=== PATIENT | female | born 1950 | race Caucasian/White ===

== ENCOUNTER 2018-01-15 10:03 | Emergency (ER) | END 2018-01-15 15:48 | disposition home or self-care (01) ==

== ENCOUNTER 2018-01-21 12:09 | Emergency (ER) | END 2018-01-21 15:49 | disposition home or self-care (01) ==

== ENCOUNTER 2018-04-07 10:16 | Day surgery (SDC) | END 2018-04-07 16:45 | disposition home or self-care (01) ==